=== PATIENT | female | born 1975 | race Caucasian/White ===

== ENCOUNTER 2019-01-08 22:54 | Emergency (ER) | payer MEDICAID, OTHER ==
[2019-01-08] MEDS: DIPHENHYDRAMINE 50 MG CAP PO (23:54)
[2019-01-08] MEDS: ONDANSETRON (ODT) 4 MG TAB ODT (23:54)
[2019-01-08] MEDS: KETOROLAC 30 MG INJ IM (23:54)
== END 2019-01-09 01:22 | disposition home or self-care (01) ==
LOC: FTE 22:54
DX: R51 Headache (principal)
CPT/HCPCS: 70450; 81025; 96372; 99285-25